=== PATIENT | female | born 1990 | race African-American/Black ===

== ENCOUNTER 2017-12-01 14:12 | Emergency (ER) | payer OTHER ==
[~2017-12-01] VITALS: Ht 165.1 cm; Wt 69.0 kg
--- NOTE | ~2017-12-01 | EKG ---
[place] [address] [facility] [place] [address] ELECTROCARDIOGRAM REPORT Name: FELECIA RUELAS Room #: [facility]P [facility] [id number] Admission: 12/01/17 Attend Phys: Discharge: 12/01/17 Date of : 88 Report #: [id number] THIS REPORT FOR: //name// [facility] ED Test Date: 2017-12-01 Test Time: 14:30:25 Pat Name: FELECIA RUELAS Department: Room: Gender: F Leather Scraper: GLORIA : 1990 Requested By: Chidi Gan Order Number: [id number] MD: Guille Contreras Measurements Intervals [place] Rate: 85 P: 46 MI: 147 QRS: 39 QRSD: 110 T: 33 QT: 380 QTc: 452 Interpretive Statements Sinus rhythm RSR' in V1 or V2, right VCD or RVH Baseline wander in lead(s) I,III,aVL Compared to ECG 08/13/2010 19:34:38 RSR' in V1 or V2 now present Electronically Signed On 12-03-2017 7:58:12 LONG DISTANCE BILLING OPERATOR by Guille Contreras [email or web address] <ELECTRONICALLY SIGNED> By: Guille Contreras MD, [facility] 12/03/17 0758 1430 1430 Guille Contreras MD, [facility] /EPI
[~2017-12-01 14:12] MED LIST: DARVOCET-N 1001 EACH PO; FLEXERIL PO; IBUPROFEN 600600 M1 PO; MACROBID 100 M100 M1 PO; NAPROSYN500 MG PO; NOHOMEMEDICATIONS; NORCO 5-325 TA1 EACH PO; NORFLEX100 MG PO; PYRIDIUM200 MG PO; ULTRAM 50MG TAB50 MG PO; ZPAK PO
[2017-12-01] MEDS ORDERED: NAPROSYN500 MG PO (14:37)
== END 2017-12-01 15:18 | disposition home or self-care (01) ==
LOC: ER 14:12
DX: M94.0 Chondrocostal junction syndrome [Tietze] (principal)

== ENCOUNTER 2019-04-13 12:07 | Emergency (ER) | payer OTHER ==
[~2019-04-13] VITALS: Ht 165.1 cm; Wt 70.8 kg
[2019-04-13 12:24] VITALS: BP 141/84
[2019-04-13 12:34] LABS: URINE BILIRUBIN NEGATIVE (Negative); URINE BLOOD 2+ (Negative); URINE CLARITY CLEAR; URINE COLOR YELLOW; URINE GLUCOSE-RANDOM* NEGATIVE (Negative); URINE KETONES NEGATIVE (Negative); URINE LEUKOCYTES-REFLEX NEGATIVE (Negative); URINE NITRITE-REFLEX NEGATIVE (Negative); URINE PROTEIN (DIPSTICK) NEGATIVE (Negative); URINE SPECIFIC GRAVITY <= 1.005 (1.005-1.035); URINE UROBILINOGEN 0.2 E.U./dl (0.2-1.0)
[2019-04-13 12:58] LABS: CASTS None Seen /LPF (None Seen); CRYSTALS None Seen /LPF (None Seen); SQUAMOUS 0-3 Few /LPF (0-3)
[2019-04-13 12:59] LABS: BACTERIA-REFLEX 1-9 Few /HPF (None Seen); URINE WBC-REFLEX 0-5 Rare /HPF (0-5)
[2019-04-13 13:00] LABS: URINE RBC None Seen /HPF (0-2)
[2019-04-13 14:48] LABS: ABSOLUTE NEUTROPHILS 6.2 thou/uL (1.4-8.2); BASOPHILS 0.4 % (0.0-2.0); EOSINOPHILS 0.9 % (0.0-3.0); HEMATOCRIT 38.3 % (37.0-47.0); HEMOGLOBIN 12.9 gm/dL (12.0-15.0); LYMPHOCYTES 28.7 % (24.0-44.0); MCH 31.7 pg (26.0-34.0); MCHC 33.6 g/dL (28.0-37.0); MCV 94.1 fL (80.0-100.0); MONOCYTES 6.1 % (1.0-8.0); PLATELET COUNT 187 thou/uL (150-400); POLYS 63.9 % (36.0-66.0); RBC 4.06 mil/uL (4.20-5.00); RDW 12.9 % (10.5-14.5); WBC 9.7 thou/uL (4.0-11.0)
[2019-04-13 15:02] LABS: URINE BILIRUBIN NEGATIVE (Negative); URINE BLOOD NEGATIVE (Negative); URINE CLARITY CLEAR; URINE GLUCOSE-RANDOM* NEGATIVE (Negative); URINE KETONES NEGATIVE (Negative); URINE LEUKOCYTES-REFLEX NEGATIVE (Negative); URINE NITRITE-REFLEX NEGATIVE (Negative); URINE PROTEIN (DIPSTICK) NEGATIVE (Negative); URINE SPECIFIC GRAVITY <= 1.005 (1.005-1.035); URINE UROBILINOGEN 0.2 E.U./dl (0.2-1.0)
[2019-04-13 15:06] LABS: URINE COLOR STRAW
[2019-04-13] MEDS ORDERED: VITAFOL-OB+DHA1 EACH PO (15:21)
== END 2019-04-13 15:55 | disposition home or self-care (01) ==
LOC: ER 12:07
PROVIDERS: Physician Assistant
DX: O20.0 Threatened abortion (principal); O34.81 Maternal care for other abnormalities of pelvic organs, first trimester; N83.201 Unspecified ovarian cyst, right side; Z3A.14 14 weeks gestation of pregnancy; F17.210 Nicotine dependence, cigarettes, uncomplicated

== ENCOUNTER 2019-04-19 16:33 | Emergency (ER) | payer OTHER ==
[~2019-04-19 16:33] MED LIST changes: +VITAFOL-OB+DHA1 EACH PO
[2019-04-19 16:34] VITALS: BP 133/70
[2019-04-19 17:47] LABS: HEMATOCRIT 39.9 % (37.0-47.0); HEMOGLOBIN 13.4 gm/dL (12.0-15.0)
[2019-04-19] MEDS ORDERED: NAPROSYN500 MG PO (18:10)
== END 2019-04-19 18:30 | disposition home or self-care (01) ==
LOC: ER 16:33
PROVIDERS: Emergency Medicine
DX: O03.80 Unspecified complication following complete or unspecified spontaneous abortion (principal); O99.330 Smoking (tobacco) complicating pregnancy, unspecified trimester; F17.210 Nicotine dependence, cigarettes, uncomplicated; Z3A.00 Weeks of gestation of pregnancy not specified

== ENCOUNTER 2019-06-05 13:26 | Emergency (ER) | payer OTHER ==
[~2019-06-05] VITALS: Ht 165.1 cm; Wt 70.3 kg
[2019-06-05 13:58] LABS: ABSOLUTE NEUTROPHILS 5.1 thou/uL (1.4-8.2); BASOPHILS 0.5 % (0.0-2.0); EOSINOPHILS 0.7 % (0.0-3.0); HEMATOCRIT 38.4 % (37.0-47.0); HEMOGLOBIN 12.9 gm/dL (12.0-15.0); LYMPHOCYTES 32.1 % (24.0-44.0); MCH 31.6 pg (26.0-34.0); MCHC 33.6 g/dL (28.0-37.0); MCV 94.2 fL (80.0-100.0); MONOCYTES 7.9 % (1.0-8.0); POLYS 58.8 % (36.0-66.0); RBC 4.08 mil/uL (4.20-5.00); RDW 12.8 % (10.5-14.5); WBC 8.7 thou/uL (4.0-11.0)
[2019-06-05 14:03] LABS: ANION GAP 9 mmol/L (7-16); BUN 9 mg/dL (7-18); CALCIUM 9.3 mg/dL (8.5-10.1); CHLORIDE 103 mmol/L (98-107); CO2 28 mmol/L (21-32); CREATININE 0.8 mg/dL (0.6-1.0); GLUCOSE 94 mg/dL (74-106); POTASSIUM 3.6 mmol/L (3.5-5.1); SODIUM 140 mmol/L (136-145)
[2019-06-05 14:12] LABS: PLATELET COUNT 181 thou/uL (150-400); TROPONIN-I <0.06 ng/mL (<0.06)
[2019-06-05 14:13] LABS: LARGE PLATELETS OCCASIONAL
[2019-06-05] MEDS ORDERED: KEFLEX500 M1 PO (15:01)
[2019-06-05] MEDS ORDERED: METRONIDAZOLE500 M4 PO (16:16)
[2019-06-05 16:31] VITALS: BP 125/68
--- NOTE | 2019-06-06 07:25 | EKG ---
[place] [address] [employer] [facility] [place] [address] ELECTROCARDIOGRAM REPORT Name: FELECIA RUELAS [facility] [id number] ������������������ Admission: 06/05/19 ������������������ Attend Phys: Discharge: 06/05/19 ������������������ Date of : [birth year] Report #: [id number] ����������������������������������������������������������������� [id number] THIS REPORT FOR: //name// [facility] ED Test Date: 2019-06-05 Test Time: 13:53:36 Pat Name: FELECIA RUELAS Department: Room: Gender: F Rfid Developer: : 1990 Requested By: Paulina Lopez Order Number: [id number] MD: Guille Contreras Measurements Intervals [place] Rate: 80 P: 52 SD: 147 QRS: 49 QRSD: 100 T: 41 QT: 389 QTc: 449 Interpretive Statements Sinus rhythm Normal tracing Compared to ECG 12/01/2017 14:30:25 Right ventricular conduction delay is no longer present Electronically Signed On 06-06-2019 7:24:56 CDT by Guille Contreras [email or web address] ��������������������������������������������� <ELECTRONICALLY SIGNED> ���������������������������������������� By: Guille Contreras MD, [facility] ��������������������������������������������� 06/06/19 0724 1353 1353 Guille Contreras MD, [facility] /EPI
== END 2019-06-05 16:17 | disposition home or self-care (01) ==
LOC: ER 13:26
PROVIDERS: Nurse Practitioner
DX: N76.0 Acute vaginitis (principal); B96.89 Other specified bacterial agents as the cause of diseases classified elsewhere; R07.89 Other chest pain; F17.210 Nicotine dependence, cigarettes, uncomplicated

== ENCOUNTER 2020-12-18 14:18 | Emergency (ER) | payer OTHER ==
[~2020-12-18] VITALS: Ht 165.1 cm; Wt 84.4 kg
[~2020-12-18 14:18] MED LIST changes: +KEFLEX500 M1 PO; +METRONIDAZOLE500 M4 PO
[2020-12-18 14:56] LABS: URINE BILIRUBIN NEGATIVE (Negative); URINE BLOOD NEGATIVE (Negative); URINE CLARITY CLEAR; URINE COLOR YELLOW; URINE GLUCOSE-RANDOM* NEGATIVE (Negative); URINE KETONES NEGATIVE (Negative); URINE NITRITE-REFLEX NEGATIVE (Negative); URINE PROTEIN (DIPSTICK) NEGATIVE (Negative); URINE UROBILINOGEN 0.2 E.U./dl (0.2-1.0)
[2020-12-18 14:57] LABS: URINE LEUKOCYTES-REFLEX 1+ (Negative)
[2020-12-18 15:01] LABS: ABSOLUTE NEUTROPHILS 7.7 thou/uL (1.4-8.2); BASOPHILS 0.5 % (0.0-2.0); EOSINOPHILS 0.9 % (0.0-3.0); HEMATOCRIT 35.9 % (37.0-47.0); HEMOGLOBIN 11.5 gm/dL (12.0-15.0); MCH 29.1 pg (26.0-34.0); MCV 91.1 fL (80.0-100.0); MONOCYTES 6.6 % (1.0-8.0); PLATELET COUNT 213 thou/uL (150-400); RBC 3.95 mil/uL (4.20-5.00); RDW 15.8 % (10.5-14.5); WBC 11.2 thou/uL (4.0-11.0)
[2020-12-18 15:06] LABS: MUCUS >6 Heavy strn/LPF (None Seen); SQUAMOUS >10 Many /LPF (0-3)
[2020-12-18 15:07] LABS: BACTERIA-REFLEX >30 Many /HPF (None Seen); CASTS None Seen /LPF (None Seen); CRYSTALS None Seen /LPF (None Seen); URINE RBC 0-2 Rare /HPF (0-2); URINE WBC-REFLEX 6-15 Few /HPF (0-5)
[2020-12-18 15:16] LABS: ANION GAP 11 mmol/L (7-16); BUN 7 mg/dL (7-18); CALCIUM 9.2 mg/dL (8.5-10.1); CHLORIDE 102 mmol/L (98-107); CO2 25 mmol/L (21-32); CREATININE 0.8 mg/dL (0.6-1.0); GLUCOSE 92 mg/dL (74-106); POTASSIUM 3.3 mmol/L (3.5-5.1); SODIUM 138 mmol/L (136-145)
[2020-12-18] MEDS ORDERED: KEFLEX500 M1 PO (15:18)
[2020-12-18 15:25] VITALS: BP 132/72
[2020-12-18 15:27] LABS: ALBUMIN 4.6 g/dL (3.4-5.0); SGOT 20 U/L (15-37); SGPT 38 U/L (14-59); TOTAL BILIRUBIN 0.2 mg/dL (0.2-1.0); TOTAL PROTEIN 7.9 g/dL (6.4-8.2); TROPONIN-I <0.06 ng/mL (<0.06)
--- NOTE | 2020-12-19 10:16 | EKG ---
[address] [place] [address] ELECTROCARDIOGRAM REPORT Name: FELECIA RUELAS Room #: DEP Hector#: [id number] Admission: 12/18/20 Attend Phys: Discharge: 12/18/20 Date of : [birth year] Report #: [id number] [facility] ED Test Date: 2020-12-18 Test Time: 14:13:31 Pat Name: FELECIA RUELAS Department: Room: Gender: F Loaf Counter: CLARISSA : 1990 Requested By: [place] Order Number: [id number] MD: Steven Shaver Measurements Intervals [place] Rate: 79 P: 45 CA: 153 QRS: 47 QRSD: 104 T: 51 QT: 398 QTc: 457 Interpretive Statements Sinus rhythm Compared to ECG 06/05/2019 13:53:36 Electronically Signed On 12-19-2020 10:16:33 ULTRASOUND MANAGER by Steven Shaver [email or web address] <ELECTRONICALLY SIGNED> By: Steven Shaver MD 12/19/20 1016 1413 1413 Steven Shaver MD /EPI
== END 2020-12-18 15:20 | disposition left against medical advice (07) ==
LOC: ER 14:18
PROVIDERS: Physician Assistant
DX: R07.89 Other chest pain (principal); F17.210 Nicotine dependence, cigarettes, uncomplicated; Z79.899 Other long term (current) drug therapy